=== PATIENT | male | born 1945 ===

== ENCOUNTER 2016-05-31 22:23 | Emergency (ER) | payer MEDICARE ==
[2016-05-31] MEDS ORDERED: Diphtheria,Pertussis(Acell),Tetanus Vaccine 0.5 ML SDV inactive IM ONE (22:42)
[2016-05-31] MEDS ORDERED: Diphtheria/Tetanus Toxoids,Adult (Td) 0.5 ML SDV IM ONE (23:17)
--- NOTE | 2016-05-31 23:25 | ER ---
HISTORY OF PRESENT ILLNESS: A 71-year-old male here who comes in with a friend , they are up here for a fishing trip. The patient states he is from [place]. The patient went outside [place] cigar [place] the [place], when he slipped on the ice and fell. He sustained a laceration above the left eyebrow and a couple of abrasion injuries, one on his hand and another one around the laceration. The patient states he did not get knocked out. He does not feel lightheaded. He has not had any problems with nausea, vomiting, and denies any neck pain. His only headache is at the wound site. The patient tells me he has been healthy and does not take any prescription medication. He does not think he is current on his tetanus status. OBJECTIVE: GENERAL APPEARANCE: The patient is awake and alert. Pleasant and talkative. VITAL SIGNS: Reviewed as listed. HEENT: Examining the patient's forehead reveals a laceration about 2 cm in length above the left eyebrow, there the wound edges are approximated with mild pressure, they only partially separate, this is a partial thickness laceration. There is a superficial abrasion injury that radiates about 2 to 3 cm in all directions from the laceration. There is mild swelling around the laceration as well. Examining the patient's hands reveals three small superficial abrasions about a centimeter in size, two on the left hand and one on the right. DIAGNOSIS: Laceration to forehead with superficial abrasion injuries. TREATMENT PLAN: We cleansed the laceration with sterile saline after which I dried the area thoroughly. I then applied Dermabond to seal the wound. I applied three layers of Dermabond giving at about one minute between each layer, this worked well with good results. The patient tolerated this well. Nursing staff cleaned the abrasion injuries and will apply Band-Aids if needed. A Tdap will be given to the patient tonight as well. He is to monitor for infection. He is to use Tylenol, taking one dose tonight and another dose right away in the morning. Activity should be as tolerated and if there is any sign of infection he is to follow up for recheck as needed. I advised the patient to leave the Dermabond alone and when this started loosening, he can peel that off if it has been several days at least but only has it loosens initially on its own. The patient has no further questions and will leave here with his friend driving him back to their camp [place] they are staying. DANILO/OSIEL /[id number] MTDD
[2016-06-01 01:37] VITALS: BP 134/89
== END 2016-05-31 23:20 | disposition home or self-care (01) ==
LOC: LB.ED 22:23
DX: S01.81XA Laceration without foreign body of other part of head, initial encounter (principal); S60.512A Abrasion of left hand, initial encounter; S60.511A Abrasion of right hand, initial encounter; W00.0XXA Fall on same level due to ice and snow, initial encounter
CPT/HCPCS: 12001; 12011; 90714; 99282; 99283-25